=== PATIENT | female | born 1990 | race Hispanic/Latino ===

== ENCOUNTER 2018-10-16 11:03 | Emergency (ER) | payer BC ==
[2018-10-16 11:13] VITALS: BMI 20.3
[2018-10-16 11:15] VITALS: RESP 18; TEMP 98.5
[2018-10-16] MEDS ORDERED: Sodium Chloride 0.9% 1,000 ML IV STA (11:18)
--- NOTE | 2018-10-16 11:23 | ED PDOC ---
Arrival/HPI - General Historian: Patient - History of Present Illness Narrative History of Present Illness (Text): 10/16/18 11:20 28yo female with past medical history of seizure present to emergency department requesting Ativan. Patient states she had seizure at 0100am this morning and took only half tab o her Ativan that was left. the by the bedside states she usually take a full tab, so when patient woke up she was having a headache indicating that she was still having seizure. She came to the emergency department to get Ativan. Patient states while she was at her Neurologist office last week her Keppra level was low and the dose was increased . She den ies any focal weakness, tongue biting, urinary incontinence, dizziness, nausea, vomiting, abdominal pain, any other complaint. <Kiesha Quiroz A - Last Filed: 10/16/18 14:27> <Otis Villarreal - Last Filed: 10/16/18 14:34> - General Chief Complaint: Headache Past Medical History - Provider Review Nursing Documentation Reviewed: Yes - Infectious Disease Hx of Infectious Diseases: None <Kiesha Quiroz - Last Filed: 10/16/18 14:27> Family/Social History - Physician Review Nursing Documentation Reviewed: Yes Family/Social History: Unknown Family HX <Kiesha Quiroz - Last Filed: 10/16/18 14:27> Allergies/Home Meds <Kiesha Quiroz - Last Filed: 10/16/18 14:27> <Otis Villarreal - Last Filed: 10/16/18 14:34> Allergies/Adverse Reactions: Allergies passion fruit Allergy (Uncoded 10/16/18 11:14) SWELLING Home Medications: Home Meds Medication Instructions Recorded Confirmed Levetiracetam [Keppra] 500 mg PO DAILY 10/16/18 10/16/18 Lorazepam [Ativan] 1 mg PO PRN PRN 10/16/18 10/16/18 RX: Metoprolol Succinate XL 50 mg PO HS 10/16/18 10/16/18 [Toprol XL] RX: Metoprolol Tartrate [Lopressor] 25 mg PO DAILY 10/16/18 10/16/18 levETIRAcetam [Keppra] 1,000 mg PO HS 10/16/18 10/16/18 Review of Systems - Physician Review All systems were reviewed & negative as marked: Yes - Review of Systems Constitutional: Normal Eyes: Normal ENT: Normal Respiratory: Normal Cardiovascular: Normal Gastrointestinal: Normal Genitourinary Female: Normal Musculoskeletal: Normal Skin: Normal Neurological: Headache. absent: Dizziness, Focal Weakness Endocrine: Normal Hemo/Lymphatic: Normal Psychiatric: Normal <Diru,Happiness A - Last Filed: 10/16/18 14:27> Physical Exam Vital Signs Reviewed: Yes Vital Signs Temp Pulse Resp BP Pulse Ox 10/16/18 11:04 98.5 F 73 18 123/85 100 Temperature: Afebrile Blood Pressure: Normal Pulse: Regular Respiratory Rate: Normal Appearance: Positive for: Well-Appearing, Non-Toxic, Comfortable Pain Distress: None Mental Status: Positive for: Alert and Oriented X 3 - Systems Exam Head: Present: Atraumatic, Normocephalic Pupils: Present: PERRL Extroacular Muscles: Present: EOMI Conjunctiva: Present: Normal Mouth: Present: Moist Mucous Membranes Neck: Present: Normal Range of Motion Respiratory/Chest: Present: Clear to Auscultation, Good Air Exchange. No: Respiratory Distress, Accessory Muscle Use Cardiovascular: Present: Regular Rate and Rhythm, Normal S1, S2. No: Murmurs Abdomen: No: Tenderness, Distention, Peritoneal Signs Back: Present: Normal Inspection Upper Extremity: Present: Normal Inspection. No: Cyanosis, Edema Lower Extremity: Present: Normal Inspection. No: Edema Neurological: Present: GCS=15, CN II-XII Intact, Speech Normal, Motor Func Grossly Intact, Normal Sensory Function, Gait Normal, Memory Normal, Other (No focal neurological deficit) Skin: Present: Warm, Dry, Normal Color. No: Rashes Psychiatric: Present: Alert, Oriented x 3, Normal Insight, Normal Concentration <Diru,Happiness A - Last Filed: 10/16/18 14:27> Vital Signs Temp Pulse Resp BP Pulse Ox 10/16/18 14:20 67 18 105/63 99 10/16/18 12:48 82 18 119/73 100 10/16/18 12:19 79 18 135/67 100 10/16/18 11:04 98.5 F 73 18 123/85 100 <Prosper Villarrealoper - Last Filed: 10/16/18 14:34> Medical Decision Making ED Course and Treatment: 10/16/18 11:31 29yo female who present with complaint of headache since this morning. Labs Keppra level 1L NS, Tylenol EKG Head CT Will reassess 10/16/18 11:32 EKG NSR @ 72bpm 10/16/18 14:10 PT had a witnessed tonic-clonic seizure while in emergency department . No tongue biting and no urinary incontinence noted Ativan 2mg was given and pt was loaded with a gram of Keppra Lab was unremarkable, with except of BS of 61. she note that she did not eat breakfast. she was given Juice and food in emergency department . Repeat FS improved. Keppra level pending Head CT - Negative Pt was observed in emergency department and she remain AAO x3 in emergency department . She states she feels much better and requested to be DC. all result was DW the pt and she was advised to follow up with her Neurologist - Medication Orders Current Medication Orders: Sodium Chloride (Sodium Chloride 0.9%) 1,000 mls @ 999 mls/hr IV .Q1H1M STA Stop: 10/16/18 12:18 <Kiesha Quiroz - Last Filed: 10/16/18 14:27> - Lab Interpretations Lab Results: 10/16/18 11:30 10/16/18 11:30 Lab Results 10/16/18 13:16: POC Glucose (mg/dL) 61 L 10/16/18 11:30: Alcohol, Quantitative < 10 10/16/18 11:30: Sodium 140, Potassium 4.2, Chloride 106, Carbon Dioxide 25, Anion Gap 13, BUN 14, Creatinine 0.7, Est GFR ( Amer) > 60, Est GFR (Non- Af Amer) > 60, Random Glucose 91, Calcium 9.6, Magnesium 1.9, Total Bilirubin 0.3, AST 32, ALT 30, Alkaline Phosphatase 45, Total Creatine Kinase 57, Total Protein 7.8, Albumin 4.7, Globulin 3.1, Albumin/Globulin Ratio 1.5 10/16/18 11:30: WBC 8.7, RBC 4.14, Hgb 13.1, Hct 37.5, MCV 90.6, MCH 31.6, MCHC 34.9, RDW 12.0, Plt Count 212, MPV 11.2 H, Gran % 67.9, Lymph % (Auto) 23.9, [place] % (Auto) 7.3 H, Eos % (Auto) 0.7 L, Baso % (Auto) 0.2, Gran # 5.87, Lymph # (Auto) 2.1, [place] # (Auto) 0.6, Eos # (Auto) 0.1, Baso # (Auto) 0.02 10/16/18 11:20: Urine Opiates Screen Negative, Urine Methadone Screen Negative, Ur Barbiturates Screen Negative, Ur Phencyclidine Scrn Negative, Ur Amphetamines Screen Negative, U Benzodiazepines Scrn Negative, U Oth Cocaine Metabols Negative, U Cannabinoids Screen Negative 10/16/18 11:20: Urine Color Yellow, Urine Appearance Clear, Urine pH 7.0, Ur Specific [place] 1.010, Urine Protein Negative, Urine Glucose (UA) Negative, Urine Ketones Negative, Urine Blood Negative, Urine Nitrate Negative, Urine Bilirubin Negative, Urine Urobilinogen 0.2, Ur Leukocyte Esterase Negative - RAD Interpretation Radiology Orders: 10/16/18 11:24 HEAD W/O CONTRAST [CT] Stat - Medication Orders Current Medication Orders: Discontinued Medications Sodium Chloride (Sodium Chloride 0.9%) 1,000 mls @ 999 mls/hr IV .Q1H1M STA Stop: 10/16/18 12:18 Last Admin: 10/16/18 11:35 Dose: 999 mls/hr eMAR Start Stop Document 10/16/18 11:35 GMD (Rec: 10/16/18 11:36 GMD [id number]) Intravenous Solution Start Date 10/16/18 Start Time 11:35 End Date 10/16/18 End time 12:35 Total Infusion Time 60 Levetiracetam (Keppra 1000mg/100ml Ns) 100 mls @ 440 mls/hr IV ONCE ONE Stop: 10/16/18 12:06 Last Admin: 10/16/18 12:10 Dose: 440 mls/hr eMAR Start Stop Document 10/16/18 12:10 GMD (Rec: 10/16/18 12:10 GMD [id number]) Intravenous Solution Start Date 10/16/18 Start Time 12:10 End Date 10/16/18 End time 12:23 Total Infusion Time 13 Lorazepam (Ativan) 2 mg IVP ONCE ONE; Protocol Stop: 10/16/18 11:54 Last Admin: 10/16/18 11:57 Dose: 2 mg IVP Administration Document 10/16/18 11:57 GMD (Rec: 10/16/18 11:57 GMD [id number]) Charges for Administration # of IVP Administrations 1 <Otis Villarreal - Last Filed: 10/16/18 14:34> - PA / [employer] ADF CONSULTANT / Resident Statement MD/DO has reviewed & agrees with the documentation as recorded. <Otis Villarreal - Last Filed: 10/16/18 14:34> Disposition/Present on Arrival - Present on Arrival Any Indicators Present on Arrival: No History of DVT/PE: No History of Uncontrolled Diabetes: No Urinary Catheter: No History of Decub. Ulcer: No History Surgical Site Infection Following: None - Disposition Have Diagnosis and Disposition been Completed?: Yes Disposition Time: 14:15 Patient Plan: Discharge <Kiesha Quiroz - Last Filed: 10/16/18 14:27> <Otis Villarreal - Last Filed: 10/16/18 14:34> - Disposition Diagnosis: Seizure Disposition: HOME/ ROUTINE Condition: STABLE Discharge Instructions (ExitCare): Seizures, Adult (DC) Additional Instructions: Follow up with your Neurologist Return to emergency department for any new or worsening symptoms Referrals: Trinity De León MD [Medical Doctor] - Follow up with primary Forms: [employer] ([place])
[2018-10-16 11:42] LABS: URINE APPEARANCE CLEAR (CLEAR); URINE BILIRUBIN NEGATIVE (NEGATIVE); URINE BLOOD NEGATIVE (NEGATIVE); URINE COLOR YELLOW (YELLOW); URINE GLUCOSE (UA) NEGATIVE (NEGATIVE); URINE LEUKOCYTE ESTERASE NEGATIVE Leu/uL (NEGATIVE); URINE PROTEIN NEGATIVE mg/dL (<30 mg/dL); URINE UROBILINOGEN 0.2 E.U./dL (<1 E.U./dL)
[2018-10-16 11:43] LABS: BASO # 0.02 K/mm3 (0.0-2.0); BASO % 0.2 % (0.0-3.0); EOS # 0.1 (0.0-0.7); EOS % 0.7 % (1.5-5.0); GRAN # 5.87 (1.4-6.5); GRAN % 67.9 % (50.0-68.0); HEMOGLOBIN 13.1 g/dL (12.0-16.0); LYMPH # 2.1 (1.2-3.4); LYMPH % 23.9 % (22.0-35.0); MEAN CELL VOLUME 90.6 fl (80.0-105.0); MEAN CORPUSCULAR HEMOGLOBIN 31.6 pg (25.0-35.0); MEAN CORPUSCULAR HGB CONC 34.9 g/dl (31.0-37.0); MEAN PLATELET VOLUME 11.2 fl (7.0-11.0); MONO # 0.6 (0.1-0.6); MONO % 7.3 % (1.0-6.0); RBC 4.14 10^6/uL (3.5-6.1); WHITE BLOOD COUNT 8.7 10^3/uL (4.5-11.0)
[2018-10-16 11:52] LABS: ALB/GLOB RATIO 1.5 (1.1-1.8); ALBUMIN 4.7 g/dL (3.0-4.8); ALT/SGPT 30 U/L (7-56); AST/SGOT 32 U/L (14-36); BLOOD UREA NITROGEN 14 mg/dL (7-21); CALCIUM 9.6 mg/dL (8.4-10.5); GFR NON-AFRICAN AMERICAN > 60
[2018-10-16] MEDS ORDERED: levETIRAcetam 1000mg/100ml NS 100 ML IV ONE (11:53)
[2018-10-16 12:16] LABS: BARBITURATES, UR NEGATIVE (NEGATIVE); BENZODIAZEPINES, UR NEGATIVE (NEGATIVE); OPIATES, UR NEGATIVE (NEGATIVE); PHENCYCLIDINE, UR NEGATIVE (NEGATIVE)
--- NOTE | 2018-10-16 13:14 | CT ---
Date of service: 10/16/2018 PROCEDURE: CT HEAD WITHOUT CONTRAST. HISTORY: Headache s/p seizure COMPARISON: None available. TECHNIQUE: Axial computed tomography images were obtained through the head/brain without intravenous contrast. Radiation dose: Total exam DLP = 772.76 mGy-cm. This CT exam was performed using one or more of the following dose reduction techniques: Automated exposure control, adjustment of the mA and/or kV according to patient size, and/or use of iterative reconstruction technique. FINDINGS: HEMORRHAGE: No intracranial hemorrhage. BRAIN: No mass effect or edema. No atrophy or chronic microvascular ischemic changes. VENTRICLES: Unremarkable. No hydrocephalus. CALVARIUM: Unremarkable. PARANASAL SINUSES: Unremarkable as visualized. No significant inflammatory changes. MASTOID AIR CELLS: Unremarkable as visualized. No inflammatory changes. OTHER FINDINGS: None. IMPRESSION: Normal CT of the Head.
[2018-10-16 14:21] VITALS: BP 105/63; PULSE 67; O2SAT 99
--- NOTE | 2018-10-16 22:23 | CARD ---
APPROVED REPORT Date of service: 10/16/2018 EKG Measurement Heart [id number] <Conclusion> Normal sinus rhythm Normal ECG
== END 2018-10-16 14:30 | disposition home or self-care (01) ==
LOC: ED 11:03
DX: R56.9 Unspecified convulsions (principal)
CPT/HCPCS: 70450; 80053; 80177; 81003; 82550; 82948; 83735; 85025; 93005; 96361; 96374; 96375; 99285; G0480; J1953; J2060; J7030

== ENCOUNTER 2018-11-13 22:25 | Emergency (ER) | payer BC ==
[2018-11-13 22:26] VITALS: BMI 20.3
[2018-11-13 23:14] VITALS: TEMP 97.6; O2SAT 100
[2018-11-13] MEDS ORDERED: Sodium Chloride 0.9% 1,000 ML IV SCH (23:45)
[2018-11-13] MEDS ORDERED: Sodium Chloride 0.9% 1,000 ML IV STA (23:54)
--- NOTE | 2018-11-13 23:59 | ED PDOC ---
Arrival/HPI <Akhil Castro - Last Filed: 11/14/18 00:52> - General Historian: Patient - History of Present Illness Narrative History of Present Illness (Text): 11/13/18 23:57 28-year-old female with history of epilepsy and postural tachycardia, complains of 2 day history of nausea, vomiting, difficulty tolerating by mouth, with diarrhea today. Patient reports no abdominal pain. Otherwise: (-) recent travel or antibiotic use, (-) sick contacts, (-) fever, (-) urinary symptoms, (-) melena, (-) hematochezia. Has no history of prior abdominal surgery. PMD not in area LMP last week <Rylee Urias PA-C - Last Filed: 11/14/18 01:33> - General Chief Complaint: GI Problem Time Seen by Provider: 11/13/18 23:11 Past Medical History - Infectious Disease Hx of Infectious Diseases: None - Cardiac Other/Comment: postural tachycardia - Neurological Hx Seizures: Yes - Psychiatric Hx Substance Use: No - Anesthesia Hx Anesthesia: No <Rylee Urias PA-C - Last Filed: 11/14/18 01:33> Family/Social History Family/Social History: No Known Family HX Smoking Status: Never Smoked Hx Alcohol Use: Yes Hx Substance Use: No <Rylee Urias PA-C - Last Filed: 11/14/18 01:33> Allergies/Home Meds <Akhil Castro - Last Filed: 11/14/18 00:52> <Rylee Urias PA-C - Last Filed: 11/14/18 01:33> Allergies/Adverse Reactions: Allergies passion fruit Allergy (Uncoded 10/16/18 11:14) SWELLING Home Medications: Home Meds Medication Instructions Recorded Confirmed Levetiracetam [Keppra] 500 mg PO DAILY 10/16/18 10/16/18 Lorazepam [Ativan] 1 mg PO PRN PRN 10/16/18 10/16/18 Metoprolol Succinate XL [Toprol XL] 50 mg PO HS 10/16/18 10/16/18 Metoprolol Tartrate [Lopressor] 25 mg PO DAILY 10/16/18 10/16/18 levETIRAcetam [Keppra] 1,000 mg PO HS 10/16/18 10/16/18 Review of Systems - Review of Systems Constitutional: absent: Fatigue, Fevers Respiratory: absent: SOB, Cough Cardiovascular: absent: Chest Pain, Palpitations Gastrointestinal: Diarrhea, Nausea, Vomiting. absent: Abdominal Pain Genitourinary Female: absent: Dysuria, Frequency Musculoskeletal: absent: Arthralgias, Back Pain Skin: absent: Rash, Pruritis Neurological: absent: Headache, Dizziness <Rylee Urias PA-C - Last Filed: 11/14/18 01:33> Physical Exam Vital Signs Temp Pulse Resp BP Pulse Ox 11/13/18 23:13 97.6 F 88 18 130/87 100 <Akhil Castro - Last Filed: 11/14/18 00:52> Vital Signs Temp Pulse Resp BP Pulse Ox 11/13/18 23:13 97.6 F 88 18 130/87 100 Temperature: Afebrile Blood Pressure: Normal Pulse: Regular Respiratory Rate: Normal Appearance: Positive for: Well-Appearing, Non-Toxic, Comfortable Pain Distress: None Mental Status: Positive for: Alert and Oriented X 3 - Systems Exam Head: Present: Atraumatic, Normocephalic Pupils: Present: PERRL Extroacular Muscles: Present: EOMI Conjunctiva: Present: Normal Mouth: Present: Dry Pharnyx: Present: Normal. No: ERYTHEMA, EXUDATE Neck: Present: Normal Range of Motion Respiratory/Chest: Present: Clear to Auscultation, Good Air Exchange. No: Re spiratory Distress, Accessory Muscle Use Cardiovascular: Present: Regular Rate and Rhythm, Normal S1, S2. No: Murmurs Abdomen: No: Tenderness, Distention, Peritoneal Signs, Rebound, Guarding Back: Present: Normal Inspection Upper Extremity: Present: Normal Inspection. No: Cyanosis, Edema Lower Extremity: Present: Normal Inspection. No: Edema Neurological: Present: GCS=15, CN II-XII Intact, Speech Normal, Motor Func Grossly Intact, Normal Sensory Function Skin: Present: Warm, Dry, Normal Color. No: Rashes Psychiatric: Present: Alert, Oriented x 3, Normal Insight, Normal Concentration <Rylee Urias PA-C - Last Filed: 11/14/18 01:33> Medical Decision Making - Lab Interpretations Lab Results: 11/13/18 23:54 Lab Results 11/13/18 23:54: WBC 10.7 D, RBC 4.32, Hgb 13.4, Hct 38.6, MCV 89.4, MCH 31.0, MCHC 34.7, RDW 11.6, Plt Count 251, MPV 12.3 H, Gran % 73.0 H, Lymph % (Auto) 21.5 L, [place] % (Auto) 4.6, Eos % (Auto) 0.6 L, Baso % (Auto) 0.3, Gran # 7.83 H, Lymph # (Auto) 2.3, [place] # (Auto) 0.5, Eos # (Auto) 0.1, Baso # (Auto) 0.03 - Medication Orders Current Medication Orders: Sodium Chloride (Sodium Chloride 0.9%) 1,000 mls @ 1,000 mls/hr IV .Q1H STA Stop: 11/14/18 00:53 Last Admin: 11/14/18 00:44 Dose: 1,000 mls/hr eMAR Start Stop Document 11/14/18 00:44 JOL (Rec: 11/14/18 00:45 JO [id number]) Intravenous Solution Start Date 11/13/18 Start Time 22:44 End Date 11/13/18 End time 23:44 Total Infusion Time 60 Sodium Chloride (Sodium Chloride 0.9%) 100 mls @ 1,000 mls/hr IV .Q6M [facility] Last Admin: 11/14/18 00:45 Dose: 1,000 mls/hr eMAR Start Stop Document 11/14/18 00:45 JOL (Rec: 11/14/18 00:45 JO [id number]) Intravenous Solution Start Date 11/13/18 Start Time 23:44 End Date 11/14/18 End time 00:44 Total Infusion Time 60 Discontinued Medications Famotidine (Pepcid) 20 mg IVP STAT STA Stop: 11/13/18 23:55 Last Admin: 11/14/18 00:44 Dose: 20 mg IVP Administration Document 11/14/18 00:44 JOL (Rec: 11/14/18 00:44 JO [id number]) Charges for Administration # of IVP Administrations 1 Ondansetron HCl (Zofran Inj) 4 mg IVP STAT STA Stop: 11/13/18 23:55 Last Admin: 11/14/18 00:45 Dose: 4 mg IVP Administration Document 11/14/18 00:45 SAMMY (Rec: 11/14/18 00:45 SAMMY [id number]) Charges for Administration # of IVP Administrations 1 <Akhil Castro - Last Filed: 11/14/18 00:52> ED Course and Treatment: 11/13/18 23:56 Plan : - IV - Labs - NS bolus IV x2 - Zofran IV - Pepcid IV 11/14/18 01:26 Uhcg (-), rest of labs wnl. On reevaluation, patient reports improvement of symptoms, denies any nausea, abdominal pain or diarrhea while in the ER. On exam, patient remains awake alert and oriented 3 in no acute distress. Patient is smiling, cheerful and in good spirits. Abdomen soft and nontender, repeat neuro exam shows no focal findings. Patient able to tolerate po fluids. Diagnostic results d/w the patient. Based on history, exam and diagnostic results plan will be for outpatient follow up. Patient feels comfortable going home. Advised to follow up with primary care physician in 1-2 days without fail. Advised to take medication as prescribed. Return to the emergency room at any time for any new or worsening symptoms. Patient states she fully agrees with and understands discharge instructions. States that she agrees with the plan and disposition. Verbalized and repeated discharge instructions and plan. I have given the patient opportunity to ask any additional questions. - Medication Orders Current Medication Orders: Famotidine (Pepcid) 20 mg IVP STAT STA Stop: 11/13/18 23:55 Sodium Chloride (Sodium Chloride 0.9%) 1,000 mls @ 1,000 mls/hr IV .Q1H STA Stop: 11/14/18 00:53 Sodium Chloride (Sodium Chloride 0.9%) 100 mls @ 1,000 mls/hr IV .Q6M LELO Ondansetron HCl (Zofran Inj) 4 mg IVP STAT STA Stop: 11/13/18 23:55 <Rylee Urias PA-C - Last Filed: 11/14/18 01:33> - PA / TRAINING PROGRAM MANAGER / Resident Statement / has reviewed & agrees with the documentation as recorded. / has examined the patient and agrees with the treatment plan. <Akhil Castro - Last Filed: 11/14/18 00:52> - PA / TRAINING PROGRAM MANAGER / Resident Statement KEYONNA has reviewed & agrees with the documentation as recorded. <Rylee Urias PA-C - Last Filed: 11/14/18 01:33> Disposition/Present on Arrival <Akhil Castro - Last Filed: 11/14/18 00:52> - Present on Arrival Any Indicators Present on Arrival: No History of DVT/PE: No History of Uncontrolled Diabetes: No Urinary Catheter: No History of Decub. Ulcer: No History Surgical Site Infection Following: None - Disposition Have Diagnosis and Disposition been Completed?: Yes Disposition Time: 01:30 Patient Plan: Discharge <Rylee Urias PA-C - Last Filed: 11/14/18 01:33> - Disposition Diagnosis: Vomiting and diarrhea, Dehydration Disposition: HOME/ ROUTINE Patient Problems: Current Active Problems Problem Status Onset Vomiting and diarrhea Acute Dehydration Acute Condition: IMPROVED Discharge Instructions (ExitCare): Dehydration, Adult (DC), Nausea and Vomiting, Adult (DC) Additional Instructions: Thank you for letting us take care of you today. You were treated for vomiting and diarrhea, dehydration. The emergency medical care you received today was directed at your acute symptoms. If you were prescribed any medication, please fill it and take as directed. BRAT diet, drink plenty of fluids. It may take several days for your symptoms to resolve. Return to the Emergency Department if your symptoms worsen, do not improve, or if you have any other problems. Please contact your doctor in 2 days for re-evaluation and follow up. Bring any paperwork you were given at discharge with you along with any medications you are taking to your follow up visit. Our treatment cannot replace ongoing medical care by a primary care provider (PCP) outside of the emergency department. Thank you for allowing the [facility] team to be part of your care today. Prescriptions: Ondansetron ODT [Zofran ODT] 4 mg PO DAILY PRN #20 odt PRN Reason: Nausea/Vomiting Forms: [employer] ([place]ian), WORK NOTE
[2018-11-14 00:30] LABS: BASO # 0.03 K/mm3 (0.0-2.0); BASO % 0.3 % (0.0-3.0); EOS # 0.1 (0.0-0.7); EOS % 0.6 % (1.5-5.0); GRAN # 7.83 (1.4-6.5); HEMOGLOBIN 13.4 g/dL (12.0-16.0); LYMPH # 2.3 (1.2-3.4); LYMPH % 21.5 % (22.0-35.0); MEAN CELL VOLUME 89.4 fl (80.0-105.0); MEAN CORPUSCULAR HGB CONC 34.7 g/dl (31.0-37.0); MEAN PLATELET VOLUME 12.3 fl (7.0-11.0); MONO # 0.5 (0.1-0.6); MONO % 4.6 % (1.0-6.0); RBC 4.32 10^6/uL (3.5-6.1); RED CELL DISTRIBUTION WIDTH 11.6 % (11.5-14.5); WHITE BLOOD COUNT 10.7 10^3/uL (4.5-11.0)
[2018-11-14 00:42] LABS: ALB/GLOB RATIO 1.5 (1.1-1.8); ALBUMIN 4.8 g/dL (3.0-4.8); ALT/SGPT 27 U/L (7-56); AST/SGOT 26 U/L (14-36); BLOOD UREA NITROGEN 14 mg/dL (7-21); CALCIUM 10.1 mg/dL (8.4-10.5); LIPASE 293 U/L (23-300)
[2018-11-14 00:53] LABS: URINE APPEARANCE CLEAR (CLEAR); URINE BILIRUBIN NEGATIVE (NEGATIVE); URINE BLOOD NEGATIVE (NEGATIVE); URINE COLOR YELLOW (YELLOW); URINE GLUCOSE (UA) NEGATIVE (NEGATIVE); URINE LEUKOCYTE ESTERASE NEGATIVE Leu/uL (NEGATIVE); URINE PROTEIN NEGATIVE mg/dL (<30 mg/dL); URINE UROBILINOGEN 0.2 E.U./dL (<1 E.U./dL)
[2018-11-14 01:27] LABS: GFR NON-AFRICAN AMERICAN > 60
[2018-11-14 06:32] VITALS: BP 126/74; PULSE 72; RESP 16
== END 2018-11-14 01:40 | disposition home or self-care (01) ==
LOC: ED 22:25
DX: R11.2 Nausea with vomiting, unspecified (principal); R19.7 Diarrhea, unspecified; E86.0 Dehydration
CPT/HCPCS: 80053; 81003; 83690; 83735; 85025; 87086; 96361; 96374; 96375; 99284; J2405; J7030